=== PATIENT | female | born 1975 | race Caucasian/White ===

== ENCOUNTER 2024-05-22 19:28 | Emergency (ER) | payer SELFPAY ==
[~2024-05-22] VITALS: Ht 167.6 cm; Wt 72.4 kg
[2024-05-22 19:32] VITALS: BP 127/84; RESP 16; TEMP 98.1; O2SAT 100
[2024-05-22 19:35] VITALS: PULSE 81; O2SAT 99
== END 2024-05-22 22:34 | disposition left against medical advice (07) ==
LOC: ER 19:28
DX: J45.909 Unspecified asthma, uncomplicated (principal); Z53.21 Procedure and treatment not carried out due to patient leaving prior to being seen by health care provider